=== PATIENT | female | born 1970 | race Caucasian/White ===

== ENCOUNTER 2018-11-03 16:33 | Emergency (ER) | payer BC ==
[2018-11-03 16:45] VITALS: BP 161/99
[2018-11-03] MEDS ORDERED: DEXAMETHASONE 4 MG TABLET PO ONE (17:00)
--- NOTE | 2018-11-03 17:24 | RAD ---
Three-view right foot study Clinical indications: Right foot pain. FINDINGS: No acute fracture or dislocation or lytic process is evident. No periosteal reaction is seen. Small plantar spur of the calcaneus is seen. IMPRESSION: No acute osseous abnormality. Electronically signed by: Anthony Driver MD (11/03/2018 5:21 PM) [id number]
[2018-11-03] MEDS ORDERED: PRED20TA PO (17:30)
--- NOTE | 2018-11-03 17:30 | PHYS DOC ---
Past History Past Medical History: Other Additional Past Medical Histor: Plantar fascititis, left knee problems, SI joint disease Past Surgical History: Hysterectomy Smoking: Non-smoker Alcohol Use: None Drug Use: None Adult General Chief Complaint Chief Complaint: LOWER EXT PAIN HPI HPI 48-year-old female presents with report of right foot pain which became worse since last night. Patient reports she was getting on the bus and stepped off the ball of her foot with a subsequent "pop". Patient reports since that time she has had increased pain to the plantar aspect of her right foot. Patient does have a history of plantar fasciitis. Patient reports she had been using ibuprofen and icing area with stretches for the last few days. Denies swelling or erythema. Denies ecchymosis. Denies fever or chills. Review of Systems Review of Systems Constitutional: Denies fever or chills Eyes: Denies redness or eye pain HENT: Denies nasal congestion or sore throat Respiratory: Denies cough or shortness of breath Cardiovascular: Denies chest pain or palpitations GI: Denies abdominal pain, nausea, or vomiting : Denies dysuria or hematuria Musculoskeletal: Denies back pain; reports right foot pain Integument: Denies rash or skin lesions Neurologic: Denies headache, focal weakness or sensory changes Complete systems were reviewed and found to be within normal limits, except as documented in this note. Current Medications Current Medications Current Medications Medications (Trade) Dose Ordered Sig/Reina Start Time Stop Time Status Last Admin Dose Admin Dexamethasone (Decadron) 10 mg 1X ONCE 11/03/18 17:00 11/03/18 17:02 DC 11/03/18 17:00 10 MG Allergies Allergies Allergies Coded Allergies Type Severity Reaction Last Updated Verified No Known Drug Allergies 11/03/18 No Physical Exam Physical Exam Constitutional: Well developed, well nourished, no acute distress, non-toxic appearance HENT: Normocephalic, atraumatic Eyes: Conjunctiva normal, no discharge Neck: Normal range of motion, no tenderness, supple Cardiovascular: Right foot DP and PT +2, CR < 2 sec Lungs & Thorax: No respiratory distress Skin: Warm, dry, no erythema, no rash Extremities:right foot plantar tenderness on palpation, ROM intact, no ecchymosis or swelling noted Neurologic: Alert and oriented X 3, no focal deficits noted Psychologic: Affect normal, judgement normal, mood normal Current Patient Data Vital Signs Vital Signs Date Time Temp Pulse Resp B/P (MAP) Pulse Ox O2 Delivery O2 Flow Rate FiO2 11/03/18 16:45 98.6 65 18 100 Room Air EKG EKG [] Radiology/Procedures Radiology/Procedures PROCEDURE: FOOT RIGHT 3V Three-view right foot study Clinical indications: Right foot pain. FINDINGS: No acute fracture or dislocation or lytic process is evident. No periosteal reaction is seen. Small plantar spur of the calcaneus is seen. IMPRESSION: No acute osseous abnormality. Electronically signed by: Anthony Driver MD (11/03/2018 5:21 PM) [id number] Course & Med Decision Making Course & Med Decision Making Patient presents with history of present illness and physical exam consistent for exacerbation of plantar fasciitis of right foot. X-ray obtained without acute process. Symptomatic treatment provided with oral steroid and ice pack. Patient stable for discharge with outpatient follow-up with PCP. Discussed findings and plan with patient, who acknowledges understanding and agreement. Dragon Disclaimer Dragon Disclaimer This electronic medical record was generated, in whole or in part, using a voice recognition dictation system. Departure Departure: Impression: Primary Impression: Plantar fasciitis of right foot Disposition: HOME, SELF-CARE Condition: STABLE Referrals: MALLORY ORTEGA (PCP) Patient Instructions: Plantar Fasciitis Scripts Prednisone (PREDNISONE) 20 Mg Tablet 2 TAB PO DAILY for Fascititis, #8 TAB Start this medication tomorrow, Fri11/04/18 Prov: JEFF BAKER DO 11/03/18 JEFF BAKER DO Nov 03, 2018 17:30
== END 2018-11-03 17:30 | disposition home or self-care (01) ==
LOC: ER 16:33
DX: M72.2 Plantar fascial fibromatosis (principal)
CPT/HCPCS: 73630; 99284; J8540